=== PATIENT | female | born 1985 | race African-American/Black ===

== ENCOUNTER 2022-08-21 15:24 | Emergency (ER) | payer SELFPAY ==
[2022-08-21] MEDS ORDERED: Lidocaine 1% (PF) 30 ML VIAL ONE (16:11)
== END 2022-08-21 16:40 | disposition home or self-care (01) ==
LOC: CSHERS 15:24
DX: J06.9 Acute upper respiratory infection, unspecified (principal); L02.411 Cutaneous abscess of right axilla; F17.200 Nicotine dependence, unspecified, uncomplicated
CPT/HCPCS: 99282; J2001

== ENCOUNTER 2025-06-21 15:47 | Emergency (ER) | payer OTHER, SELFPAY ==
[2025-06-21] MEDS ORDERED: Ketorolac Tromethamine 30 MG (1 mL) VIAL ONE (16:26)
== END 2025-06-21 17:15 | disposition home or self-care (01) ==
LOC: CSHERS 15:47
DX: M25.512 Pain in left shoulder (principal); F17.200 Nicotine dependence, unspecified, uncomplicated; V43.02XA Car driver injured in collision with other type car in nontraffic accident, initial encounter; Y92.481 Parking lot as the place of occurrence of the external cause
CPT/HCPCS: 93005; 96372; 99284; J1885